=== PATIENT | female | born 1945 | race Caucasian/White ===

== ENCOUNTER 2017-01-18 11:47 | Inpatient (IN) | payer MEDICARE, BC ==
[2017-01-18] MEDS ORDERED: methylPREDNISolone Sodium Succinate 40 MG/1 ML SDV IVPUSH SCH (13:00)
[2017-01-18] MEDS ORDERED: methylPREDNISolone Sodium Succinate 125 MG/2 ML SDV IVPUSH ONE (13:02)
--- NOTE | 2017-01-18 13:39 | PCM.HP ---
H&P History of Present Illness - General Date of Service: 01/18/17 Admit Problem/Dx: Admission Diagnosis/Problem Admission Diagnosis/Problem Pneumonia Source of Information: Patient History Limitations: Reports: No limitations - History of Present Illness Onset of Symptoms: Reports: gradual Duration of Symptoms: Reports: Day(s): Location: Reports: chest Quality: Reports: Pressure, Same as previous episode Improves with: Reports: Rest Worsens with: Reports: Breathing, Other (coughing), Movement Associated Symptoms: Reports: chest pain (pleuritic), cough, cough w sputum, malaise, shortness of breath, weakness - Related Data Allergies/Adverse Reactions: Allergies Allergy/AdvReac Type Severity Reaction Status Date / Time codeine Allergy Cannot Verified 02/21/14 11:50 Remember Home Medications: Home Meds Gabapentin [Gabapentin] 02/21/14 [History] Metoprolol Succinate [Toprol XL 50mg] 02/21/14 [History] hydrALAZINE [Apresoline] 02/21/14 [History] Past Medical History HEENT History: Reports: Other (see below) Other HEENT History: h/o right tempanic membrane perforation Cardiovascular History: Reports: High cholesterol, Hypertension Musculoskeletal History: Reports: RA Neurological History: Reports: CVA, Neuropathy, peripheral, TIA Other Neuro History: 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 Psychiatric History: Reports: Anxiety, Depression - Past Surgical History HEENT Surgical History: Reports: Eye surgery Other HEENT Surgeries/Procedures: Cataract surgery Social & Family History - Tobacco Use Smoking Status *Q: Former Smoker Years of Tobacco use: 51 Second Hand Smoke Exposure: No - Alcohol Use Days Per Week of Alcohol Use: 1 Number of Drinks Per Day: 1 (1 glass wine per week with no previous DWI, etc.) Total Drinks Per Week: 1 - Recreational Drug Use Recreational Drug Use: No Recreational Drug Last Use: 12 cups of weak coffee per day - Living Situation & Occupation Living situation: Reports: (In 1981, one child) 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) H&P Review of Systems - Review of Systems: Review Of Systems: See Below General: Reports: fever, chills, malaise, weakness, fatigue HEENT: Reports: no symptoms Pulmonary: Reports: Shortness of Breath, Pleuritic Chest Pain, Cough, Sputum Cardiovascular: Reports: no symptoms Gastrointestinal: Reports: No symptoms Genitourinary: Reports: no symptoms Musculoskeletal: Reports: no symptoms Skin: Reports: no symptoms Psychiatric: Reports: no symptoms Neurological: Reports: No Symptoms Exam - Exam Exam: See Below - Exam General: alert, oriented, moderate distress HEENT: Posterior pharynx clear Neck: supple, trachea midline, 2 Lungs: Decreased breath sounds, Other (hurts to try to deep-breathe for exam) Cardiovascular: regular rate, regular rhythm Abdomen: normal bowel sounds, soft (Female) Exam: Deferred Rectal (Female) Exam: Deferred Back Exam: normal inspection Extremities: 3, normal inspection, 10 Skin: warm, dry, other (pale) Neuro Extensive - Mental Status: alert, oriented x3 Psychiatric: alert, normal affect, normal mood *Q Meaningful Use (ADM) - VTE *Q VTE Criteria *Q: - Stroke *Q Stroke Criteria *Q: - AMI *Q AMI Criteria *Q: - Problem List (1) Pneumonia SNOMED Code(s): 986124975 ICD Code: J18.9 - PNEUMONIA, UNSPECIFIED ORGANISM Status: Acute Priority : High Current Visit: Yes Qualifiers: Laterality: left Problem List Initiated/Reviewed/Updated: Yes Orders Last 24hrs: Active Orders 24 hr Category Date Time Status Patient Status [ADT] Routine ADT 01/18/17 12:46 Active Bedrest Bathroom Privileges [RC] ASDIRECTED Care 01/18/17 12:46 Active Height and Weight [RC] DAILY Care 01/18/17 12:46 Active Intake and Output [RC] QSHIFT Care 01/18/17 12:50 Active May Shower [RC] ASDIRECTED Care 01/18/17 12:46 Active Oxygen Therapy Adult [Oxygen Therapy] [RC] ASDIRECTED Care 01/18/17 12:56 Active Oxygen Therapy [RC] PRN Care 01/18/17 12:46 Active Up With Assistance [RC] ASDIRECTED Care 01/18/17 12:46 Active VTE/DVT Education [RC] PER UNIT ROUTINE Care 01/18/17 12:46 Active Vital Signs [RC] Q4H Care 01/18/17 12:46 Active Consult to Case Management [CONS] Routine Cons 01/18/17 12:46 Active Regular Diet [DIET] Diet 01/18/17 Dinner Active Chest 2V [CR] Routine Exams 01/18/17 11:45 Taken Chest 2V [CR] Routine Exams 01/20/17 07:00 Ordered C-REACTIVE PROTEIN [CHEM] AM Lab 01/19/17 05:11 Ordered C-REACTIVE PROTEIN [CHEM] AM Lab 01/20/17 05:11 Ordered C-REACTIVE PROTEIN [CHEM] AM Lab 01/21/17 05:11 Ordered C-REACTIVE PROTEIN [CHEM] AM Lab 01/22/17 05:11 Ordered CBC WITH AUTO DIFF [HEME] AM Lab 01/19/17 05:11 Ordered CBC WITH AUTO DIFF [HEME] AM Lab 01/20/17 05:11 Ordered CBC WITH AUTO DIFF [HEME] AM Lab 01/21/17 05:11 Ordered CBC WITH AUTO DIFF [HEME] AM Lab 01/22/17 05:11 Ordered COMPREHENSIVE METABOLIC PN,CMP [CHEM] AM Lab 01/19/17 05:11 Ordered COMPREHENSIVE METABOLIC PN,CMP [CHEM] AM Lab 01/20/17 05:11 Ordered COMPREHENSIVE METABOLIC PN,CMP [CHEM] AM Lab 01/21/17 05:11 Ordered COMPREHENSIVE METABOLIC PN,CMP [CHEM] AM Lab 01/22/17 05:11 Ordered CULTURE BLOOD [BC] Stat Lab 01/18/17 12:51 Ordered CULTURE BLOOD [BC] Stat Lab 01/18/17 12:51 Ordered CULTURE SPUTUM + SMEAR [RM] Stat Lab 01/18/17 12:46 Uncollected MYCOPLASMA IGM RAPID [MREF] Urgent Lab 01/18/17 12:59 Ordered Azithromycin [Zithromax] 500 mg Med 01/18/17 14:00 Active Sodium Chloride 0.9% [Normal Saline] 250 ml IV Q24H Piperacillin/Tazobactam [Zosyn] 3.375 gm Med 01/18/17 13:00 Active Sodium Chloride 0.9% [Normal Saline] 100 ml IV Q6H Sodium Chloride 0.9% [Saline Flush] Med 01/18/17 12:46 Active 10 ml FLUSH ASDIRECTED PRN methylPREDNISolone Sod Succ [Solu-MEDROL] Med 01/18/17 20:00 Active 40 mg IVPUSH Q12H Blood Culture x2 Reflex Set [OM.PC] Stat Oth 01/18/17 12:46 Ordered Saline Lock Insert [OM.PC] Routine Oth 01/18/17 12:46 Ordered Resuscitation Status Routine Resus Stat 01/18/17 12:46 Ordered Medication Orders Azithromycin 500 mg/ Sodium (Chloride) 250 mls @ 250 mls/hr IV Q24H ARASELI Piperacillin Sod/Tazobactam (Sod 3.375 gm/ Sodium Chloride) 100 mls @ 200 mls/ hr IV Q6H ARASELI Methylprednisolone Sodium Succinate (Solu-Medrol) 40 mg IVPUSH Q12H ARASELI Sodium Chloride (Saline Flush) 10 ml FLUSH ASDIRECTED PRN PRN Reason: Keep Vein Open Assessment/Plan Comment:: 01-18-17 Rekha Moy PA-C Pt. initially evaluated in [facility] for c/o left-sided chest congestion with pleuritic pain, cough, SOB and fatigue. Diagnosis of community-acquired pneumonia was made and she is admitted for IP treatment. Consulted Dr. Chavez at the time of admit. Patient is considered immunocompromised due to RA and treatment meds (Prednisone and Methotrexate). IV Zosyn and Zithromax as well as Solu-Medrol started. Duo-nebs QID plus Q4H prn. Mycosplasma screen ordered, can DC Zithromax if this returns negative. Blood cultures ordered on admit. Follow-up labs ordered, and repeat CXR in two days.
[2017-01-18] MEDS ORDERED: Azithromycin 500 MG in Sodium Chloride 0.9% 250 ML IV SCH (14:00)
[2017-01-18] MEDS: Piperacillin/Tazobactam 3.375 GM in Sodium Chloride 0.9% 100 ML IV SCH ×2 (14:32→19:36)
[2017-01-18] MEDS ORDERED: Albuterol/Ipratropium 3.0-0.5 MG/3 ML Neb Soln NEB PRN (14:54)
[2017-01-18] MEDS: Albuterol/Ipratropium 3.0-0.5 MG/3 ML Neb Soln NEB SCH ×2 (16:35→19:36)
[2017-01-18] MEDS: methylPREDNISolone Sodium Succinate 40 MG/1 ML SDV IVPUSH SCH (19:36)
[2017-01-18] MEDS: Sodium Chloride 0.9% 10 ML Syringe FLUSH PRN ×2 (19:37→19:38)
[2017-01-18] MEDS: Famotidine 20 MG Tab PO SCH (20:54)
[2017-01-19] MEDS: Sodium Chloride 0.9% 10 ML Syringe FLUSH PRN (01:09)
[2017-01-19] MEDS: Piperacillin/Tazobactam 3.375 GM in Sodium Chloride 0.9% 100 ML IV SCH ×4 (01:09→19:11)
[2017-01-19] MEDS: Clopidogrel 75 MG Tab PO SCH (08:34)
[2017-01-19] MEDS: Gabapentin 100 MG Cap PO SCH ×3 (08:34→17:34)
[2017-01-19] MEDS: Famotidine 20 MG Tab PO SCH ×2 (08:35→19:11)
[2017-01-19] MEDS: methylPREDNISolone Sodium Succinate 40 MG/1 ML SDV IVPUSH SCH (08:36)
[2017-01-19] MEDS: Albuterol/Ipratropium 3.0-0.5 MG/3 ML Neb Soln NEB SCH ×4 (08:36→19:11)
--- NOTE | 2017-01-19 12:22 | PCM.SN ---
- Free Text/Narrative Note: 01-19-17 Rekha Moy PA-C Mycoplasma negative, Zithromax [place].
[2017-01-19] MEDS: Sodium Chloride 0.9% 10 ML Syringe FLUSH SCH (19:12)
--- NOTE | 2017-01-19 22:51 | PCM.PN ---
- General Info Date of Service: 01/19/17 Functional Status: Reports: other (pain improving) - Review of Systems General: Reports: Weakness, Other (flushed with solumedrol) HEENT: Reports: no symptoms Pulmonary: Reports: shortness of breath, pleuritic chest pain, cough, sputum Cardiovascular: Reports: No Symptoms Gastrointestinal: Reports: Decreased appetite Genitourinary: Reports: no symptoms Musculoskeletal: Reports: no symptoms Skin: Reports: no symptoms Neurological: Reports: No Symptoms Psychiatric: Reports: no symptoms - Patient Data Vitals - most recent: Last Vital Signs Temp 97.8 F 01/19/17 19:18 Pulse 101 H 01/19/17 19:18 Resp 16 01/19/17 19:18 BP 151/72 H 01/19/17 19:18 Pulse Ox 96 01/19/17 19:18 Weight - most recent: 176 lb 6.4 oz I&O - last 24 hours: Intake & Output 01/19/17 01/19/17 01/19/17 06:59 14:59 22:59 Intake Total 150 640 200 Output Total 400 Balance -250 640 200 Lab Results last 24 hrs: Laboratory Results - last 24 hr 01/19/17 01/19/17 Range/Units 06:53 06:53 WBC 7.8 (4.0-10.2) K/uL RBC 3.60 L (3.77-5.09) M/uL Hgb 11.4 L D (11.7-15.5) g/dL Hct 35.3 (34.0-46.0) % MCV 98.1 H (84.0-98.0) fL MCH 31.7 (28.2-33.3) pg MCHC 32.3 (31.7-36.0) g/dL RDW 14.6 H (11.2-14.1) % Plt Count 203 (150-350) K/uL Neut % (Auto) 87.8 H (45.0-80.0) % Lymph % (Auto) 8.1 L (10.0-50.0) % [place] % (Auto) 2.7 (2.0-14.0) % Eos % (Auto) 0.0 (0.0-5.0) % Baso % (Auto) 1.4 (0.0-2.0) % Neut # (Auto) 6.84 (1.40-7.00) K/uL Lymph # (Auto) 0.63 (0.50-3.50) K/uL [place] # (Auto) 0.21 (0.00-1.00) K/uL Eos # (Auto) 0.00 (0.00-0.50) K/uL Baso # (Auto) 0.11 (0.00-0.20) K/uL Sodium 140 (136-145) mmol/L Potassium 4.4 (3.5-5.1) mmol/L Chloride 104 (98-107) mmol/L Carbon Dioxide 25.3 (21.0-32.0) mmol/L BUN 18 (7-18) mg/dL Creatinine 1.00 (0.51-1.17) mg/dL Est Cr Clr Drug Dosing 53.73 mL/min Estimated GFR (MDRD) 55 mL/min Glucose 184 H (74-106) mg/dL Calcium 8.4 L (8.5-10.1) mg/dL Total Bilirubin 0.4 (0.2-1.0) mg/dL AST 18 (15-37) U/L ALT 21 (12-78) U/L Alkaline Phosphatase 60 (46-116) IU/L C-Reactive Protein 10.1 H (<=0.9) mg/dL Total Protein 6.4 (6.4-8.2) g/dL Albumin 2.8 L (3.4-5.0) g/dL Dc Results last 24 hrs: Microbiology 01/18/17 13:00 Mycoplasma Serology - Final Blood Med Orders - Current: Current Medications Albuterol/Ipratropium (Duoneb 3.0-0.5 Mg/3 Ml) 3 ml NEB QIDRT [facility] Last Admin: 01/19/17 19:11 Dose: 3 ml Albuterol/Ipratropium (Duoneb 3.0-0.5 Mg/3 Ml) 3 ml NEB Q4HRRT PRN PRN Reason: Dyspnea Clopidogrel Bisulfate (Plavix) 75 mg PO DAILY [facility] Last Admin: 01/19/17 08:34 Dose: 75 mg Famotidine (Pepcid) 40 mg PO Q12HR [facility] Last Admin: 01/19/17 19:11 Dose: 40 mg Gabapentin (Neurontin) 100 mg PO TID [facility] Last Admin: 01/19/17 17:34 Dose: 100 mg Piperacillin Sod/Tazobactam (Sod 3.375 gm/ Sodium Chloride) 100 mls @ 200 mls/ hr IV Q6H [facility] Last Admin: 01/19/17 19:11 Dose: 200 mls/hr Prednisone (Prednisone) 10 mg PO WITHBREAKFAST [facility] Sodium Chloride (Saline Flush) 10 ml FLUSH ASDIRECTED PRN PRN Reason: Keep Vein Open Last Admin: 01/19/17 01:09 Dose: 10 ml Sodium Chloride (Saline Flush) 10 ml FLUSH Q12HR [facility] Last Admin: 01/19/17 19:12 Dose: 10 ml Discontinued Medications Azithromycin 500 mg/ Sodium (Chloride) 250 mls @ 250 mls/hr IV Q24H [facility] Last Admin: 01/18/17 15:20 Dose: 250 mls/hr Methylprednisolone Sodium Succinate (Solu-Medrol) 40 mg IVPUSH Q12H [facility] Last Admin: 01/18/17 16:23 Dose: Not Given Methylprednisolone Sodium Succinate (Solu-Medrol) 40 mg IVPUSH ONETIME ONE Stop: 01/18/17 13:03 Last Admin: 01/18/17 14:24 Dose: 40 mg Methylprednisolone Sodium Succinate (Solu-Medrol) 40 mg IVPUSH Q12H [facility] Last Admin: 01/19/17 08:36 Dose: 40 mg - Exam Quality Assessment: supplemental oxygen General: alert, cooperative, mild distress HEENT: Mucous membr. moist/pink Neck: trachea midline, no JVD Lungs: Normal respiratory effort, Decreased breath sounds (left base), Crackles , Rhonchi, Rub (left base) Cardiovascular: Regular Rate, Regular Rhythm Abdomen: bowel sounds present, soft, no tenderness, no distension (Female) Exam: Deferred Back Exam: normal inspection Extremities: no edema, no calf tenderness Skin: warm, dry, intact Neurological: no new focal deficit Psy/Mental Status: alert, normal affect, normal mood - Problem List Review Problem List Initiated/Reviewed/Updated: Yes - My Orders Last 24 Hours: My Active Orders 01/19/17 20:00 Sodium Chloride 0.9% [Saline Flush] 10 ml FLUSH Q12HR 01/20/17 08:00 predniSONE 10 mg PO WITHBREAKFAST - Plan Plan:: 01-18-17 Rekha Moy PA-C Pt. initially evaluated in [facility] [place] [place] for c/o left-sided chest congestion with pleuritic pain, cough, SOB and fatigue. Diagnosis of community-acquired pneumonia was made and she is admitted for IP treatment. Consulted Dr. Chavez at the time of admit. Patient is considered immunocompromised due to RA and treatment meds (Prednisone and Methotrexate). IV Zosyn and Zithromax as well as Solu-Medrol started. Duo-nebs QID plus Q4H prn. Mycosplasma screen ordered, can DC Zithromax if this returns negative. Blood cultures ordered on admit. Follow-up labs ordered, and repeat CXR in two days. 01/19/17 Scott Thomas MD Feels a little bit better today but still short of breath and pleuritic chest pain is improved. Productive cough last night. Solumedrol causing her to flush, head pounding, she says solumedrol at higher doses has done this in the past. She is on chronic Prednisone so will change to prednisone at 10mg daily which is slight increase of her maintenance dose of 5mg daily. Continue IV zosyn and change to prednisone. Continue respiratory treatments.
[2017-01-20] MEDS: Piperacillin/Tazobactam 3.375 GM in Sodium Chloride 0.9% 100 ML IV SCH ×4 (01:50→18:16)
[2017-01-20] MEDS: Sodium Chloride 0.9% 10 ML Syringe FLUSH PRN ×3 (01:51→18:16)
[2017-01-20] MEDS: Albuterol/Ipratropium 3.0-0.5 MG/3 ML Neb Soln NEB SCH ×4 (07:23→20:27)
[2017-01-20] MEDS: Clopidogrel 75 MG Tab PO SCH (07:23)
[2017-01-20] MEDS: predniSONE 5 MG Tab PO SCH (07:23)
[2017-01-20] MEDS: Famotidine 20 MG Tab PO SCH ×2 (07:23→20:27)
[2017-01-20] MEDS: Gabapentin 100 MG Cap PO SCH ×3 (07:23→18:16)
[2017-01-20] MEDS: Sodium Chloride 0.9% 10 ML Syringe FLUSH SCH ×2 (07:24→20:28)
--- NOTE | 2017-01-20 15:53 | PCM.PN ---
- General Info Date of Service: 01/20/17 Admission Dx/Problem (Free Text): Admission Diagnosis/Problem Admission Diagnosis/Problem Pneumonia Subjective Update: Patient reports subjective improvement with cough and shortness of breath and cough has improved. She reports she feels intermittently lightheaded when she is up and ambulating. Tolerating oral liquids and diet. No other complaints. - Review of Systems General: Reports: Other (Lightheadedness when ambulating.) HEENT: Reports: no symptoms Pulmonary: Reports: cough (Improved) Cardiovascular: Reports: No Symptoms Gastrointestinal: Reports: No symptoms Genitourinary: Reports: no symptoms Musculoskeletal: Reports: no symptoms Skin: Reports: no symptoms Neurological: Reports: No Symptoms Psychiatric: Reports: no symptoms - Patient Data Vitals - most recent: Last Vital Signs Temp 35.5 C 01/20/17 11:50 Pulse 85 01/20/17 11:50 Resp 18 01/20/17 08:00 BP 118/52 L 01/20/17 11:50 Pulse Ox 94 L 01/20/17 11:50 Weight - most recent: 81.692 kg I&O - last 24 hours: Intake & Output 01/20/17 01/20/17 01/20/17 06:59 14:59 22:59 Intake Total 760 Balance 760 Lab Results last 24 hrs: Laboratory Results - last 24 hr 01/20/17 01/20/17 Range/Units 06:40 06:40 WBC 10.0 (4.0-10.2) K/uL RBC 3.77 (3.77-5.09) M/uL Hgb 11.9 (11.7-15.5) g/dL Hct 37.3 (34.0-46.0) % MCV 98.9 H (84.0-98.0) fL MCH 31.6 (28.2-33.3) pg MCHC 31.9 (31.7-36.0) g/dL RDW 14.8 H (11.2-14.1) % Plt Count 235 (150-350) K/uL Neut % (Auto) 83.7 H (45.0-80.0) % Lymph % (Auto) 12.7 (10.0-50.0) % [place] % (Auto) 2.3 (2.0-14.0) % Eos % (Auto) 0.1 (0.0-5.0) % Baso % (Auto) 1.2 (0.0-2.0) % Neut # (Auto) 8.40 H (1.40-7.00) K/uL Lymph # (Auto) 1.27 (0.50-3.50) K/uL [place] # (Auto) 0.23 (0.00-1.00) K/uL Eos # (Auto) 0.01 (0.00-0.50) K/uL Baso # (Auto) 0.12 (0.00-0.20) K/uL Sodium 145 (136-145) mmol/L Potassium 4.3 (3.5-5.1) mmol/L Chloride 107 (98-107) mmol/L Carbon Dioxide 27.8 (21.0-32.0) mmol/L BUN 19 H (7-18) mg/dL Creatinine 0.99 (0.51-1.17) mg/dL Est Cr Clr Drug Dosing 54.28 mL/min Estimated GFR (MDRD) 55 mL/min Glucose 157 H (74-106) mg/dL Calcium 8.9 (8.5-10.1) mg/dL Total Bilirubin 0.3 (0.2-1.0) mg/dL AST 23 (15-37) U/L ALT 28 (12-78) U/L Alkaline Phosphatase 63 (46-116) IU/L C-Reactive Protein 5.1 H (<=0.9) mg/dL Total Protein 6.8 (6.4-8.2) g/dL Albumin 3.0 L (3.4-5.0) g/dL Dc Results last 24 hrs: Microbiology 01/18/17 13:25 Aerobic Blood Culture - Preliminary Blood - Venous - Lab Draw NO GROWTH AFTER 2 DAYS Anaerobic Blood Culture - Preliminary NO GROWTH AFTER 2 DAYS 01/18/17 13:00 Aerobic Blood Culture - Preliminary Blood - Venous NO GROWTH AFTER 2 DAYS Anaerobic Blood Culture - Preliminary NO GROWTH AFTER 2 DAYS Med Orders - Current: Current Medications Albuterol/Ipratropium (Duoneb 3.0-0.5 Mg/3 Ml) 3 ml NEB QIDRT [facility] Last Admin: 01/20/17 11:20 Dose: 3 ml Albuterol/Ipratropium (Duoneb 3.0-0.5 Mg/3 Ml) 3 ml NEB Q4HRRT PRN PRN Reason: Dyspnea Clopidogrel Bisulfate (Plavix) 75 mg PO DAILY [facility] Last Admin: 01/20/17 07:23 Dose: 75 mg Famotidine (Pepcid) 40 mg PO Q12HR [facility] Last Admin: 01/20/17 07:23 Dose: 40 mg Gabapentin (Neurontin) 100 mg PO TID [facility] Last Admin: 01/20/17 11:20 Dose: 100 mg Piperacillin Sod/Tazobactam (Sod 3.375 gm/ Sodium Chloride) 100 mls @ 200 mls/ hr IV Q6H [facility] Last Admin: 01/20/17 13:17 Dose: 200 mls/hr Prednisone (Prednisone) 10 mg PO WITHBREAKFAST [facility] Last Admin: 01/20/17 07:23 Dose: 10 mg Sodium Chloride (Saline Flush) 10 ml FLUSH ASDIRECTED PRN PRN Reason: Keep Vein Open Last Admin: 01/20/17 13:17 Dose: 10 ml Sodium Chloride (Saline Flush) 10 ml FLUSH Q12HR [facility] Last Admin: 01/20/17 07:24 Dose: 10 ml Discontinued Medications Azithromycin 500 mg/ Sodium (Chloride) 250 mls @ 250 mls/hr IV Q24H [facility] Last Admin: 01/18/17 15:20 Dose: 250 mls/hr Methylprednisolone Sodium Succinate (Solu-Medrol) 40 mg IVPUSH Q12H [facility] Last Admin: 01/18/17 16:23 Dose: Not Given Methylprednisolone Sodium Succinate (Solu-Medrol) 40 mg IVPUSH ONETIME ONE Stop: 01/18/17 13:03 Last Admin: 01/18/17 14:24 Dose: 40 mg Methylprednisolone Sodium Succinate (Solu-Medrol) 40 mg IVPUSH Q12H [facility] Last Admin: 01/19/17 08:36 Dose: 40 mg - Exam General: alert, oriented HEENT: Pupils equal, Pupils reactive, EOMI, Mucous membr. moist/pink Lungs: Clear to auscultation, Normal respiratory effort Cardiovascular: Regular Rate, Regular Rhythm, No Murmurs, Gallops, Rubs Abdomen: bowel sounds present, soft, no tenderness, no distension. No: rebound , guarding Extremities: no edema, normal pulses, no tenderness/swelling Skin: warm, dry, intact Neurological: no new focal deficit Psy/Mental Status: alert, normal affect, normal mood - Problem List & Annotations (1) Pneumonia SNOMED Code(s): 519962738 Code(s): J18.9 - PNEUMONIA, UNSPECIFIED ORGANISM Status: Acute Priority: High Current Visit: Yes Qualifiers: Laterality: left Annotation/Comment:: Improved significantly since admission on current regimen. (2) HTN, Benign hypertension SNOMED Code(s): 51747134 Code(s): I10 - ESSENTIAL (PRIMARY) HYPERTENSION Status: Chronic Priority : Low Current Visit: No Annotation/Comment:: Controlled on current regimen. (3) Rheumatoid arthritis SNOMED Code(s): 24145537 Code(s): M06.9 - RHEUMATOID ARTHRITIS, UNSPECIFIED Status: Chronic Priority: Low Current Visit: No Annotation/Comment:: Treated with methotrexate and Prednisone. - Problem List Review Problem List Initiated/Reviewed/Updated: Yes - My Orders Last 24 Hours: My Active Orders 01/20/17 14:42 PT Evaluation and Treatment [CONS] Routine 01/20/17 14:44 OT Evaluation and Treatment [CONS] Routine - Plan Plan:: 1. Continue IV Zosyn. 2. Continue Prednisone as patient did not tolerate Solumedrol. 3. Nebulizers as scheduled. 4. Nursing to ambulate TID in hallway. 5. Discharge planning, likely tomorrow. 6. EMILIE hose and Lovenox for DVT prophylaxis. 7. Incentive spirometer for pneumonia prophylaxis.
[2017-01-21] MEDS: guaiFENesin/Dextromethorphan 100-10 MG/5 ML Soln 10 ML Cup PO PRN ×2 (01:04→07:14)
[2017-01-21] MEDS: Sodium Chloride 0.9% 10 ML Syringe FLUSH PRN ×2 (01:05→12:46)
[2017-01-21] MEDS: Piperacillin/Tazobactam 3.375 GM in Sodium Chloride 0.9% 100 ML IV SCH ×2 (01:05→07:04)
[2017-01-21] MEDS: Gabapentin 100 MG Cap PO SCH ×2 (07:04→12:46)
[2017-01-21] MEDS: Clopidogrel 75 MG Tab PO SCH (07:04)
[2017-01-21] MEDS: Famotidine 20 MG Tab PO SCH (07:04)
[2017-01-21] MEDS: Albuterol/Ipratropium 3.0-0.5 MG/3 ML Neb Soln NEB SCH ×3 (07:04→15:36)
[2017-01-21] MEDS: predniSONE 5 MG Tab PO SCH (07:04)
[2017-01-21] MEDS: Sodium Chloride 0.9% 10 ML Syringe FLUSH SCH (07:05)
[2017-01-21] MEDS ORDERED: Levofloxacin/Dextrose 5%-Water 750 MG in Premix Bag 1 BAG IV ONE (12:26)
[2017-01-21] MEDS ORDERED: guaiFENesin/Dextromethorphan 100-10 MG/5 ML Soln 10 ML Cup PO PRN (13:00)
[2017-01-21 16:17] VITALS: BP 143/62
--- NOTE | 2017-01-21 16:27 | PCM.DCSUM1 ---
Discharge Summary - Hospital Course Free Text/Narrative:: Admitted on 01/18/17 for left sided community acquired pneumonia. Started on Zosyn and Azithromycin. Also started nebulizers and attempted IV Solumedrol which patient did not tolerate and was warm and flushed. Cultures negative and Azithromycin discontinued. Had slow and steady improvement since admission. Zosyn discontinued and given IV Levaquin 750 mg on 01/21/17 as plan to discharge home on PO Levaquin and patient tolerated well. Patient ambulated without assistance and reports weakness and lightheadedness improved and is stable and steady while ambulating. Eating and drinking well. Having normal bowel and bladder function. Ready for discharge today. Will discharge home on PO Levaquin 750 mg PO every 48 hours given creatinine clearance. Given prescription for albuterol nebulizers to use every 4 hours as needed at home. Instructed to take 5-10 mL (1-2 teaspoons) of Robitussin DM as needed for cough and congestion. Will followup with PCP in 1 week. - Discharge Data Discharge Date: 01/21/17 Discharge Disposition: Home, Self-Care 01 Condition: Good - Discharge Diagnosis/Problem(s) (1) Pneumonia SNOMED Code(s): 426292813 ICD Code: J18.9 - PNEUMONIA, UNSPECIFIED ORGANISM Status: Acute Priority : High Current Visit: Yes Problem Details: Improved on current treatment regimen. Will discharge on oral Levaquin. Qualifiers: Laterality: left (2) HTN, Benign hypertension SNOMED Code(s): 42891673 ICD Code: I10 - ESSENTIAL (PRIMARY) HYPERTENSION Status: Chronic Priority : Low Current Visit: No Problem Details: Controlled on current regimen. (3) Rheumatoid arthritis SNOMED Code(s): 71894040 ICD Code: M06.9 - RHEUMATOID ARTHRITIS, UNSPECIFIED Status: Chronic Priority: Low Current Visit: No Problem Details: Treated with methotrexate and Prednisone. - Patient Summary/Data Consults: Consultations 01/18/17 12:46 Consult to Case Management [CONS] Routine 01/20/17 14:42 PT Evaluation and Treatment [CONS] Routine 01/20/17 14:44 OT Evaluation and Treatment [CONS] Routine - Patient Instructions Diet: Usual Diet as Tolerated Activity: As Tolerated, Cough & Deep Breathe Driving: Do Not Drive Showering/Bathing: May Shower Notify Provider of: Fever Other/Special Instructions: Followup with PCP in 1 week s/p hospitalization for community acquired pneumonia. - Discharge Plan Prescriptions/Med Rec: Albuterol [Proventil Neb Soln] 2.5 mg NEB Q4HRRT PRN #10 neb PRN Reason: Wheezing Levofloxacin 750 mg PO Q48H #3 tablet Home Medications: Home Meds Gabapentin [Gabapentin] 100 mg PO TID 02/21/14 [History] Calcium Carbonate/Vitamin D3 [Caltrate-600 with Vit D Tab] 1 each PO DAILY 01/18 [History] Clopidogrel [Plavix] 75 mg PO DAILY 01/18/17 [History] Folic Acid [Folic Acid] 1 mg PO DAILY 01/18/17 [History] Methotrexate [Methotrexate] 25 injection IM WEEKLY 01/18/17 [History] Non-Formulary Medication [NF Drug] 1 applic TP BID PRN 01/18/17 [History] Ranitidine HCl 150 mg PO Q12HR 01/18/17 [History] atorvaSTATin [Lipitor] 10 mg PO BEDTIME 01/18/17 [History] predniSONE [Prednisone] 5 mg PO DAILY 01/18/17 [History] Albuterol [Proventil Neb Soln] 2.5 mg NEB Q4HRRT PRN #10 neb 01/21/17 [Rx] Levofloxacin 750 mg PO Q48H #3 tablet 01/21/17 [Rx] Patient Handouts: Community-Acquired Pneumonia, Adult Referrals: Lilia Moy PA [Primary Care Provider] - - Discharge Summary/Plan Comment DC Time >30 min.: No - General Info Date of Service: 01/21/17 Admission Dx/Problem (Free Text: Admission Diagnosis/Problem Admission Diagnosis/Problem Pneumonia Functional Status: Reports: tolerating diet, ambulating, urinating - Review of Systems General: Reports: No Symptoms HEENT: Reports: no symptoms Pulmonary: Reports: cough (Improved with Robitussin DM), sputum. Denies: shortness of breath, pleuritic chest pain, hemoptysis, wheezing Cardiovascular: Reports: No Symptoms Gastrointestinal: Reports: No symptoms Genitourinary: Reports: no symptoms Musculoskeletal: Reports: no symptoms Skin: Reports: no symptoms Neurological: Reports: No Symptoms Psychiatric: Reports: no symptoms - Patient Data Vitals - Most Recent: Last Vital Signs Temp 36.7 C 01/21/17 16:00 Pulse 101 H 01/21/17 16:00 Resp 16 01/21/17 16:00 BP 143/62 H 01/21/17 16:00 Pulse Ox 95 01/21/17 16:00 Weight - Most Recent: 81.448 kg I&O - Last 24 hours: Intake & Output 01/21/17 01/21/17 01/21/17 06:59 14:59 22:59 Intake Total 560 Balance 560 Lab Results - Last 24 hrs: Laboratory Results - last 24 hr 01/21/17 01/21/17 Range/Units 06:30 06:30 WBC 7.1 (4.0-10.2) K/uL RBC 3.42 L (3.77-5.09) M/uL Hgb 10.7 L (11.7-15.5) g/dL Hct 34.4 (34.0-46.0) % MCV 100.6 H (84.0-98.0) fL MCH 31.3 (28.2-33.3) pg MCHC 31.1 L (31.7-36.0) g/dL RDW 14.9 H (11.2-14.1) % Plt Count 215 (150-350) K/uL Neut % (Auto) 59.5 (45.0-80.0) % Lymph % (Auto) 33.3 (10.0-50.0) % Gooding % (Auto) 4.2 (2.0-14.0) % Eos % (Auto) 2.0 (0.0-5.0) % Baso % (Auto) 1.0 (0.0-2.0) % Neut # (Auto) 4.24 (1.40-7.00) K/uL Lymph # (Auto) 2.37 (0.50-3.50) K/uL Gooding # (Auto) 0.30 (0.00-1.00) K/uL Eos # (Auto) 0.14 (0.00-0.50) K/uL Baso # (Auto) 0.07 (0.00-0.20) K/uL Sodium 147 H (136-145) mmol/L Potassium 4.0 (3.5-5.1) mmol/L Chloride 110 H (98-107) mmol/L Carbon Dioxide 29.2 (21.0-32.0) mmol/L BUN 18 (7-18) mg/dL Creatinine 1.18 H (0.51-1.17) mg/dL Est Cr Clr Drug Dosing 45.54 mL/min Estimated GFR (MDRD) 45 mL/min Glucose 100 (74-106) mg/dL Calcium 8.2 L (8.5-10.1) mg/dL Total Bilirubin 0.4 (0.2-1.0) mg/dL AST 17 (15-37) U/L ALT 23 (12-78) U/L Alkaline Phosphatase 53 (46-116) IU/L C-Reactive Protein 2.5 H (<=0.9) mg/dL Total Protein 5.7 L (6.4-8.2) g/dL Albumin 2.6 L (3.4-5.0) g/dL DENNIS Results - Last 24 hrs: Microbiology 01/18/17 13:25 Aerobic Blood Culture - Preliminary Blood - Venous - Lab Draw NO GROWTH AFTER 3 DAYS Anaerobic Blood Culture - Preliminary NO GROWTH AFTER 3 DAYS 01/18/17 13:00 Aerobic Blood Culture - Preliminary Blood - Venous NO GROWTH AFTER 3 DAYS Anaerobic Blood Culture - Preliminary NO GROWTH AFTER 3 DAYS Med Orders - Current: Current Medications Albuterol/Ipratropium (Duoneb 3.0-0.5 Mg/3 Ml) 3 ml NEB QIDRT [facility] Last Admin: 01/21/17 15:36 Dose: 3 ml Albuterol/Ipratropium (Duoneb 3.0-0.5 Mg/3 Ml) 3 ml NEB Q4HRRT PRN PRN Reason: Dyspnea Clopidogrel Bisulfate (Plavix) 75 mg PO DAILY [facility] Last Admin: 01/21/17 07:04 Dose: 75 mg Famotidine (Pepcid) 40 mg PO Q12HR [facility] Last Admin: 01/21/17 07:04 Dose: 40 mg Gabapentin (Neurontin) 100 mg PO TID [facility] Last Admin: 01/21/17 12:46 Dose: 100 mg Guaifenesin/Dextromethorphan (Robitussin Dm) 10 ml PO Q6H PRN PRN Reason: Cough Last Admin: 01/21/17 07:14 Dose: 10 ml Guaifenesin/Dextromethorphan (Robitussin Dm) 10 ml PO Q4H PRN PRN Reason: Cough Last Admin: 01/21/17 15:39 Dose: 10 ml Prednisone (Prednisone) 10 mg PO WITHBREAKFAST [facility] Last Admin: 01/21/17 07:04 Dose: 10 mg Sodium Chloride (Saline Flush) 10 ml FLUSH ASDIRECTED PRN PRN Reason: Keep Vein Open Last Admin: 01/21/17 12:46 Dose: 10 ml Sodium Chloride (Saline Flush) 10 ml FLUSH Q12HR [facility] Last Admin: 01/21/17 07:05 Dose: 10 ml Discontinued Medications Azithromycin 500 mg/ Sodium (Chloride) 250 mls @ 250 mls/hr IV Q24H [facility] Last Admin: 01/18/17 15:20 Dose: 250 mls/hr Piperacillin Sod/Tazobactam (Sod 3.375 gm/ Sodium Chloride) 100 mls @ 200 mls/ hr IV Q6H [facility] Last Admin: 01/21/17 07:04 Dose: 200 mls/hr Levofloxacin/Dextrose 750 mg/ (Premix) 150 mls @ 100 mls/hr IV ONETIME ONE Stop: 01/21/17 13:55 Last Admin: 01/21/17 12:46 Dose: 100 mls/hr Methylprednisolone Sodium Succinate (Solu-Medrol) 40 mg IVPUSH Q12H [facility] Last Admin: 01/18/17 16:23 Dose: Not Given Methylprednisolone Sodium Succinate (Solu-Medrol) 40 mg IVPUSH ONETIME ONE Stop: 01/18/17 13:03 Last Admin: 01/18/17 14:24 Dose: 40 mg Methylprednisolone Sodium Succinate (Solu-Medrol) 40 mg IVPUSH Q12H [facility] Last Admin: 01/19/17 08:36 Dose: 40 mg - Exam General: Reports: alert, oriented HEENT: Reports: Pupils equal, Pupils reactive, EOMI, Mucous membr. moist/pink Lungs: Reports: Clear to auscultation, Normal respiratory effort. Denies: Crackles, Rales, Rhonchi, Rub, Stridor, Wheezing Cardiovascular: Reports: Regular Rate, Regular Rhythm, No Murmurs. Denies: Gallops, Rubs Abdomen: Reports: bowel sounds present, soft, no tenderness, no distension. Denies: rigidity, rebound, guarding Extremities: Reports: no edema, no tenderness/swelling, no clubbing, no cyanosis Skin: Reports: warm, dry, intact Wound/Incisions: Reports: healing well Neurological: Reports: no new focal deficit Psy/Mental Status: Reports: alert, normal affect, normal mood *Q Meaningful Use (DIS) - VTE *Q VTE Criteria *Q: - Stroke *Q Stroke Criteria *Q: - AMI *Q AMI Criteria *Q:
== END 2017-01-21 17:50 | disposition home or self-care (01) | DRG 195 ==
LOC: LL.DI 11:47 → LL.MS 12:30
PROVIDERS: ADMIT Physician Assistant; ATTEND Family Medicine
DX: J18.9 Pneumonia, unspecified organism (principal); I10 Essential (primary) hypertension; M06.9 Rheumatoid arthritis, unspecified; F41.8 Other specified anxiety disorders; E78.5 Hyperlipidemia, unspecified; Z86.73 Personal history of transient ischemic attack (TIA), and cerebral infarction without residual deficits; Z79.899 Other long term (current) drug therapy; Z79.52 Long term (current) use of systemic steroids
CPT/HCPCS: 36415; 71020; 80053; 85025; 86140; 86738; 87040; 94640; 94664; 97110-GP; 97116-GP; 97161-GP; A9270-GY; J0456; J1956; J2543; J2920; J2930; J7050

== ENCOUNTER 2021-03-13 07:55 | Day surgery (SDC) | payer MEDICARE, BC ==
[~2021-03-13 07:55] MED LIST: Ketamine 500 mg/10 ML MDV ONE; Lactated Ringers 1,000 ML IV SCH; Midazolam 1 MG/ML 2 ML SDV ONE; Propofol 200 MG/20 ML SDV ONE; Sodium Chloride 0.9% 10 ML Syringe FLUSH PRN; fentaNYL 100 MCG/2 ML SDV ONE
[2021-03-13] MEDS ORDERED: Midazolam 1 MG/ML 2 ML SDV ONE (08:56)
[2021-03-13] MEDS ORDERED: Lidocaine 0.5% 50 ML SDV ONE (08:56)
[2021-03-13] MEDS ORDERED: hydrALAZINE 20 MG/ML SDV ONE (08:56)
[2021-03-13] MEDS ORDERED: Ketamine 500 mg/10 ML MDV ONE (08:56)
[2021-03-13] MEDS ORDERED: Propofol 200 MG/20 ML SDV ONE (08:56)
[2021-03-13] MEDS ORDERED: fentaNYL 100 MCG/2 ML SDV ONE (08:56)
--- NOTE | 2021-03-13 09:07 | PCM.PN ---
- General Info Date of Service: 03/13/21 - Review of Systems Systems Review Comment:: 75-year-old female with left carpal tunnel syndrome here for left carpal tunnel release. She is medically stable to proceed today. Her recent history and physical is reviewed and no significant changes are noted. The site for surgery is confirmed with the patient and marked. The proposed procedure is again discussed with her. Instructions and expectations are reviewed. Questions were answered. She agrees to proceed. - Patient Data Vitals - Most Recent: Last Vital Signs Temp 98.3 F 03/13/21 08:52 Pulse 84 03/13/21 08:52 Resp 18 03/13/21 08:52 BP 145/57 H 03/13/21 08:52 Pulse Ox 99 03/13/21 08:52 Weight - Most Recent: 78.925 kg Med Orders - Current: Current Medications Lactated Ringer's (Ringers, Lactated) 1,000 mls @ 125 mls/hr IV ASDIRECTED ARASELI Last Admin: 03/13/21 08:49 Dose: 125 mls/hr Documented by: Sodium Chloride (Sodium Chloride 0.9% 10 Ml Syringe) 10 ml FLUSH ASDIRECTED PRN PRN Reason: Keep Vein Open Discontinued Medications Fentanyl (Fentanyl 100 Mcg/2 Ml Sdv) Confirm Administered Dose 100 mcg .ROUTE .STK-MED ONE Stop: 03/13/21 07:43 Ketamine HCl (Ketamine 500 Mg/10 Ml Mdv) Confirm Administered Dose 500 mg .ROUTE .STK-MED ONE Stop: 03/13/21 07:44 Midazolam HCl (Midazolam 1 Mg/Ml 2 Ml Sdv) Confirm Administered Dose 2 mg .ROUTE .STK-MED ONE Stop: 03/13/21 07:44 Propofol (Propofol 200 Mg/20 Ml Sdv) Confirm Administered Dose 400 mg .ROUTE .STK-MED ONE Stop: 03/13/21 07:44 Sepsis Event Note - Focused Exam Vital Signs: Vital Signs Temp Pulse Resp BP Pulse Ox 03/13/21 08:52 98.3 F 84 18 145/57 H 99 - Problem List Review Problem List Initiated/Reviewed/Updated: Yes - Assessment Assessment:: Left carpal tunnel syndrome - Plan Plan:: Left carpal tunnel release
[2021-03-13] MEDS ORDERED: Bupivacaine 0.25%/EPINEPHrine 1:200,000 30 ML SDV INFILT ONE (09:25)
--- NOTE | 2021-03-13 09:45 | PCM.OPNOTE ---
- General Post-Op/Procedure Note Date of Surgery/Procedure: 03/13/21 Operative Procedure(s): Left Carpal Tunnel Release Findings: Thickened Left Carpal Tunnel Ligament with slight nerve atrophy Pre Op Diagnosis: Left Carpal Tunnel Syndrome Post-Op Diagnosis: Same Anesthesia Technique: Regional Block Primary Surgeon: Souleymane Plaza Pathology: none EBL in mLs: 5 Complications: None Condition: Good
--- NOTE | 2021-03-13 11:16 | OR ---
Date of Procedure: 03/13/2021 PREOPERATIVE DIAGNOSIS: Left carpal tunnel syndrome. POSTOPERATIVE DIAGNOSIS: Left carpal tunnel syndrome. OPERATION PERFORMED: Left carpal tunnel release. INDICATIONS FOR SURGERY: This 75-year-old female has developed numbness and tingling in the fingers of her left hand. Workup has identified that she has left carpal tunnel syndrome, and as her symptoms are worsening, she comes for carpal tunnel release. FINDINGS: The patient's left transverse carpal ligament is thickened causing pressure on the underlying median nerve. The nerve does show some mild atrophy from this compression, but otherwise the structures appear normal. DESCRIPTION OF PROCEDURE: The patient was taken to the operating room. She was given IV regional anesthesia in the left hand which was sterilely prepped and draped. A longitudinally-oriented curvilinear incision was made along the palmar surface of the left wrist. Dissection proceeded down onto the left transverse carpal ligament, which was incised over and parallel to the course of the underlying median nerve. The ligament was completely divided as are any potentially constricting fibrous bands proximally and distally. Great care was used to avoid any injury to the underlying nerve or its branches. After the nerve had been completely released at this level and with no sign of any complication, the wound was irrigated with saline and then closed by approximating the skin edges with interrupted 4-0 Prolene in a mattress technique. The wound was infiltrated with Marcaine. Antibiotic ointment and sterile bulky dressing were placed; this was held in position with an Rad bandage. The tourniquet was released, and the patient was taken from the operating room in satisfactory condition. ESTIMATED BLOOD LOSS: 5 mL. COMPLICATIONS: None. PROGNOSIS: Good. DIONNA Plaza MD /[id number]
[2021-03-13 11:42] VITALS: BP 126/62; PULSE 83
== END 2021-03-13 11:14 | disposition home or self-care (01) ==
LOC: LL.SDS 07:55
PROVIDERS: ATTEND Surgery
DX: G56.02 Carpal tunnel syndrome, left upper limb (principal); I10 Essential (primary) hypertension; E78.5 Hyperlipidemia, unspecified; Z87.891 Personal history of nicotine dependence; Z86.73 Personal history of transient ischemic attack (TIA), and cerebral infarction without residual deficits; Z79.899 Other long term (current) drug therapy
CPT/HCPCS: 64721; J0360; J2250; J2704; J3010; J7120; 01810

== ENCOUNTER 2022-09-27 13:07 | Observation (INO) | payer MEDICARE, BC ==
[2022-09-27 14:00] LABS: ANION GAP 10.4 meq/L (7-15); CHLORIDE,CL 100 mmol/L (98-107); SODIUM,NA 140 mmol/L (136-145)
[2022-09-27 14:12] LABS: ESTIMATED GFR 36 mL/min (>=60)
[2022-09-27 14:55] LABS: CORONAVIRUS COVID-19 NAA POSITIVE (NEGATIVE); RESPIRATORY SYNCYTIAL VIR NAA NEGATIVE (NEGATIVE)
[2022-09-27] MEDS ORDERED: Ondansetron 4 MG/2 ML SDV IVPUSH PRN (15:00)
[2022-09-27] MEDS: Sodium Chloride 0.9% 10 ML Syringe FLUSH PRN (15:13)
[2022-09-27] MEDS: Sodium Chloride 0.9% 1,000 ML IV SCH (19:07)
[2022-09-27] MEDS ORDERED: Meclizine 25 MG Tab PO PRN (19:19)
[2022-09-27] MEDS ORDERED: Calcium Carbonate 500 MG Tab.Chew PO PRN (19:19)
[2022-09-27] MEDS ORDERED: METHOTREXATE 25 MG/ML IM SCH (19:30)
[2022-09-27] MEDS: Rosuvastatin 10 MG Tab PO SCH (20:16)
[2022-09-27] MEDS: DULoxetine 30 MG Cap PO SCH (20:16)
[2022-09-27] MEDS ORDERED: Acetaminophen 500 MG Tab PO PRN (23:14)
[2022-09-28] MEDS: Sodium Chloride 0.9% 1,000 ML IV SCH ×2 (07:13→19:55)
[2022-09-28] MEDS: Hydrochlorothiazide 25 MG Tab PO SCH (07:23)
[2022-09-28] MEDS: Acetaminophen 650 MG Tab.ER PO PRN ×2 (07:23→19:53)
[2022-09-28] MEDS: Folic Acid 1 MG Tab PO SCH (07:23)
[2022-09-28] MEDS: Famotidine 20 MG Tab PO SCH ×2 (07:24→18:16)
[2022-09-28] MEDS: Gabapentin 100 MG Cap PO SCH ×3 (07:24→18:16)
[2022-09-28] MEDS: Calcium Carbonate/Vitamin D3 625 MG-125 Unit Tab PO SCH (07:24)
[2022-09-28] MEDS: Losartan 25 MG Tab PO SCH (07:24)
[2022-09-28] MEDS: predniSONE 5 MG Tab PO SCH (07:24)
[2022-09-28] MEDS: Aspirin 81 MG Tab.Chew PO SCH (07:24)
[2022-09-28] MEDS: Dexamethasone 10 MG/ML SDV IVPUSH SCH (09:44)
[2022-09-28 09:52] LABS: ANION GAP 8.4 meq/L (7-15)
[2022-09-28] MEDS ORDERED: METHOTREXATE SODIUM 25 MG/ML SUBCUT SCH (15:00)
[2022-09-28] MEDS ORDERED: Gabapentin 100 MG Cap PO PRN (19:15)
[2022-09-28] MEDS: DULoxetine 30 MG Cap PO SCH (19:54)
[2022-09-28] MEDS: Rosuvastatin 10 MG Tab PO SCH (19:54)
[2022-09-28] MEDS ORDERED: Gabapentin 300 MG Cap PO SCH (20:00)
[2022-09-29] MEDS ORDERED: Gabapentin 100 MG Cap PO SCH (08:00)
[2022-09-29 08:05] LABS: ANION GAP 8.4 meq/L (7-15)
[2022-09-29] MEDS: Aspirin 81 MG Tab.Chew PO SCH (08:16)
[2022-09-29] MEDS: Dexamethasone 10 MG/ML SDV IVPUSH SCH ×2 (08:17→13:17)
[2022-09-29] MEDS: Famotidine 20 MG Tab PO SCH (08:17)
[2022-09-29] MEDS: Hydrochlorothiazide 25 MG Tab PO SCH (08:17)
[2022-09-29] MEDS: Folic Acid 1 MG Tab PO SCH (08:18)
[2022-09-29] MEDS: Losartan 25 MG Tab PO SCH (08:18)
[2022-09-29] MEDS: predniSONE 5 MG Tab PO SCH (08:18)
[2022-09-29 08:20] VITALS: BP 126/53
[2022-09-29] MEDS: Calcium Carbonate/Vitamin D3 625 MG-125 Unit Tab PO SCH (08:20)
[2022-09-29] MEDS: Sodium Chloride 0.9% 10 ML Syringe FLUSH PRN (08:22)
[2022-09-29 08:24] VITALS: PULSE 82
== END 2022-09-29 08:50 | disposition home or self-care (01) ==
LOC: LL.ED 13:07 → LL.MS 14:50
PROVIDERS: ADMIT Emergency Medicine; ATTEND Emergency Medicine
DX: R53.1 Weakness (principal); U07.1 COVID-19; I10 Essential (primary) hypertension; E78.00 Pure hypercholesterolemia, unspecified; K21.9 Gastro-esophageal reflux disease without esophagitis; F32.A Depression, unspecified; Z88.8 Allergy status to other drugs, medicaments and biological substances; Z91.048 Other nonmedicinal substance allergy status; Z88.5 Allergy status to narcotic agent; Z79.899 Other long term (current) drug therapy; Z79.82 Long term (current) use of aspirin; Z90.49 Acquired absence of other specified parts of digestive tract; Z98.890 Other specified postprocedural states; Z90.710 Acquired absence of both cervix and uterus; E07.9 Disorder of thyroid, unspecified; Z20.822 Contact with and (suspected) exposure to COVID-19
CPT/HCPCS: 0241U; 36415; 71046; 80048; 80053; 81001; 82550; 83605; 84484; 85025; 93005; 96374; 96375; 97162-GP; 97165-GO; 99285-25; A9270-GY; G0378; J1100; J2405; J3490; J7030; J7512

== ENCOUNTER 2023-12-06 10:58 | Inpatient (IN) | payer MEDICARE, BC ==
[2023-12-06] MEDS ORDERED: Polyethylene Glycol 3350 Powder 17 GM Packet PO PRN (17:35)
[2023-12-06] MEDS ORDERED: Acetaminophen/HYDROcodone 325-5 MG Tab PO PRN (17:35)
[2023-12-06] MEDS ORDERED: Levalbuterol HCl 1.25 MG/3 ML Neb NEB PRN (17:35)
[2023-12-06] MEDS: Docusate Sodium 100 MG Cap PO SCH (18:05)
[2023-12-06] MEDS ORDERED: Gabapentin 100 MG Cap PO SCH (18:35)
[2023-12-06] MEDS: Warfarin 5 MG Tab PO SCH (19:38)
[2023-12-06] MEDS ORDERED: Meclizine 25 MG Tab PO PRN (19:38)
[2023-12-06] MEDS ORDERED: Nitroglycerin 0.4 MG Tab.SL SL PRN (19:39)
[2023-12-06] MEDS ORDERED: Calcium Carbonate 500 MG Tab.Chew PO PRN (19:41)
[2023-12-06] MEDS: Warfarin 2.5 MG Tab PO ONE (20:15)
[2023-12-06] MEDS: Rosuvastatin 10 MG Tab PO SCH (20:17)
[2023-12-06] MEDS: Gabapentin 300 MG Cap PO SCH (20:18)
[2023-12-07 07:51] LABS: INR 1.9
[2023-12-07] MEDS ORDERED: Polyethylene Glycol 3350 Powder 510 GM Bot PO PRN (08:30)
[2023-12-07] MEDS: Losartan 25 MG Tab PO SCH (09:20)
[2023-12-07] MEDS: DULoxetine 30 MG Cap PO SCH (09:21)
[2023-12-07] MEDS: Folic Acid 1 MG Tab PO SCH (09:22)
[2023-12-07] MEDS: Furosemide 20 MG Tab PO SCH (09:23)
[2023-12-07] MEDS: Gabapentin 100 MG Cap PO SCH (09:26)
[2023-12-07] MEDS: Famotidine 10 MG Tab PO SCH (09:27)
[2023-12-07] MEDS: Hydroxychloroquine 200 MG Tab PO SCH (09:27)
[2023-12-07] MEDS: predniSONE 5 MG Tab PO SCH (09:28)
[2023-12-07] MEDS: Metoprolol Succinate 25 MG Tab.ER PO SCH (09:28)
[2023-12-07] MEDS: Cyanocobalamin (Vitamin B12) 1,000 MCG Tab PO SCH (09:31)
[2023-12-07] MEDS: Acetaminophen 325 MG Tab PO PRN (09:55)
[2023-12-07] MEDS: Enoxaparin 80 MG/0.8 ML Syringe SUBCUT ONE (10:56)
[2023-12-07] MEDS: Famotidine 20 MG Tab PO SCH (12:35)
[2023-12-07] MEDS: Cyanocobalamin (Vitamin B12) 250 MCG Tab PO SCH (12:36)
[2023-12-07] MEDS: Warfarin 2.5 MG Tab PO ONE (18:03)
[2023-12-08] MEDS: Gabapentin 100 MG Cap PO SCH ×2 (07:22→08:09)
[2023-12-08] MEDS: Gabapentin 300 MG Cap ONE (07:23)
[2023-12-08 07:29] LABS: BASOPHILS ABSOLUTE AUTO 0.05 K/uL (0.00-0.20); BASOPHILS PERCENT AUTO 0.4 % (0.0-2.0); EOSINOPHILS ABSOLUTE AUTO 0.35 K/uL (0.00-0.50); EOSINOPHILS PERCENT AUTO 2.7 % (0.0-5.0); HEMATOCRIT 28.8 % (34.0-46.0); HEMOGLOBIN 8.8 g/dL (11.7-15.5); LYMPHOCYTES ABSOLUTE AUTO 3.53 K/uL (0.50-3.50); LYMPHOCYTES PERCENT AUTO 26.8 % (10.0-50.0); MEAN CORPUSCULAR HEMOGLOBIN 30.2 pg (28.2-33.3); MEAN CORPUSCULAR HGB CONC 30.6 g/dL (31.7-36.0); MONOCYTES ABSOLUTE AUTO 1.05 K/uL (0.00-1.00); NEUTROPHILS ABSOLUTE AUTO 8.18 K/uL (1.40-7.00); NEUTROPHILS PERCENT AUTO 62.1 % (45.0-80.0); PLATELET COUNT,PLT 335 K/uL (150-350); RED BLOOD CELL COUNT 2.91 M/uL (3.77-5.09); RED CELL DISTRIBUTION WIDTH 14.1 % (11.2-14.1); WHITE BLOOD CELL COUNT,WBC 13.2 K/uL (4.0-10.2)
[2023-12-08 07:46] LABS: CALCIUM 8.5 mg/dL (8.5-10.1); CARBON DIOXIDE,CO2 32.8 mmol/L (21.0-32.0); CREATININE 1.54 mg/dL (0.51-1.17); EST CRCL DRUG DOSING (CG) 27.09 mL/min; POTASSIUM,K 4.6 mmol/L (3.5-5.1)
[2023-12-08 07:48] LABS: ANION GAP 7.8 meq/L (7-15)
[2023-12-08 08:54] LABS: INR 1.7 (0.9-1.1); PROTHROMBIN TIME 16.5 SEC (9.0-11.1)
[2023-12-08] MEDS: Warfarin 5 MG Tab PO ONE (17:11)
[2023-12-09] MEDS: RISEDRONATE SODIUM 35 MG PO SCH (06:19)
[2023-12-09 08:56] LABS: BASOPHILS ABSOLUTE AUTO 0.05 K/uL (0.00-0.20); BASOPHILS PERCENT AUTO 0.4 % (0.0-2.0); EOSINOPHILS ABSOLUTE AUTO 0.37 K/uL (0.00-0.50); EOSINOPHILS PERCENT AUTO 3.1 % (0.0-5.0); HEMATOCRIT 31.6 % (34.0-46.0); HEMOGLOBIN 9.6 g/dL (11.7-15.5); LYMPHOCYTES ABSOLUTE AUTO 2.63 K/uL (0.50-3.50); LYMPHOCYTES PERCENT AUTO 22.3 % (10.0-50.0); MEAN CORPUSCULAR HEMOGLOBIN 30.2 pg (28.2-33.3); MEAN CORPUSCULAR HGB CONC 30.4 g/dL (31.7-36.0); MEAN CORPUSCULAR VOLUME 99.4 fL (84.0-98.0); MONOCYTES ABSOLUTE AUTO 0.86 K/uL (0.00-1.00); MONOCYTES PERCENT AUTO 7.3 % (2.0-14.0); NEUTROPHILS PERCENT AUTO 66.9 % (45.0-80.0); PLATELET COUNT,PLT 326 K/uL (150-350); RED BLOOD CELL COUNT 3.18 M/uL (3.77-5.09); RED CELL DISTRIBUTION WIDTH 14.2 % (11.2-14.1); WHITE BLOOD CELL COUNT,WBC 11.8 K/uL (4.0-10.2)
[2023-12-09 09:16] LABS: INR 1.6 (0.9-1.1)
[2023-12-09] MEDS: Menthol 10%/Methyl Salicylate 15% 85 GM Tube TOP PRN (09:39)
[2023-12-09] MEDS: Warfarin 5 MG Tab PO ONE (17:21)
[2023-12-10] MEDS: Warfarin 5 MG Tab PO ONE (17:26)
[2023-12-10] MEDS ORDERED: Warfarin 5 MG Tab PO ONE (18:00)
[2023-12-11] MEDS: Warfarin 2.5 MG Tab PO SCH (17:21)
[2023-12-13 07:38] LABS: INR 2.6
[2023-12-13] MEDS: Warfarin 2.5 MG Tab PO SCH (17:06)
[2023-12-14 07:39] LABS: BASOPHILS ABSOLUTE AUTO 0.07 K/uL (0.00-0.20); BASOPHILS PERCENT AUTO 0.6 % (0.0-2.0); EOSINOPHILS ABSOLUTE AUTO 0.27 K/uL (0.00-0.50); EOSINOPHILS PERCENT AUTO 2.4 % (0.0-5.0); HEMATOCRIT 31.7 % (34.0-46.0); HEMOGLOBIN 9.5 g/dL (11.7-15.5); LYMPHOCYTES ABSOLUTE AUTO 5.42 K/uL (0.50-3.50); LYMPHOCYTES PERCENT AUTO 47.3 % (10.0-50.0); MEAN CORPUSCULAR HEMOGLOBIN 30.4 pg (28.2-33.3); MEAN CORPUSCULAR VOLUME 101.6 fL (84.0-98.0); MONOCYTES ABSOLUTE AUTO 1.02 K/uL (0.00-1.00); MONOCYTES PERCENT AUTO 8.9 % (2.0-14.0); NEUTROPHILS ABSOLUTE AUTO 4.69 K/uL (1.40-7.00); NEUTROPHILS PERCENT AUTO 40.8 % (45.0-80.0); PLATELET COUNT,PLT 288 K/uL (150-350); RED BLOOD CELL COUNT 3.12 M/uL (3.77-5.09); RED CELL DISTRIBUTION WIDTH 14.8 % (11.2-14.1); WHITE BLOOD CELL COUNT,WBC 11.5 K/uL (4.0-10.2)
[2023-12-14 07:59] VITALS: BP 107/48; PULSE 92
== END 2023-12-14 09:55 | disposition home health service (06) | DRG 559 ==
LOC: LL.SWG 14:51
PROVIDERS: ADMIT Emergency Medicine; ATTEND Family Medicine
DX: Z47.1 Aftercare following joint replacement surgery (principal); J18.9 Pneumonia, unspecified organism; Z96.652 Presence of left artificial knee joint; I48.91 Unspecified atrial fibrillation; I25.10 Atherosclerotic heart disease of native coronary artery without angina pectoris; E78.00 Pure hypercholesterolemia, unspecified; K21.9 Gastro-esophageal reflux disease without esophagitis; G62.9 Polyneuropathy, unspecified; F32.A Depression, unspecified; E03.9 Hypothyroidism, unspecified; M06.9 Rheumatoid arthritis, unspecified; I12.9 Hypertensive chronic kidney disease with stage 1 through stage 4 chronic kidney disease, or unspecified chronic kidney disease; N18.30 Chronic kidney disease, stage 3 unspecified; Z88.1 Allergy status to other antibiotic agents; Z91.048 Other nonmedicinal substance allergy status; Z88.5 Allergy status to narcotic agent; Z88.8 Allergy status to other drugs, medicaments and biological substances; Z79.899 Other long term (current) drug therapy; Z79.01 Long term (current) use of anticoagulants; Z79.51 Long term (current) use of inhaled steroids; Z95.5 Presence of coronary angioplasty implant and graft; Z90.710 Acquired absence of both cervix and uterus; Z98.890 Other specified postprocedural states; Z90.49 Acquired absence of other specified parts of digestive tract
CPT/HCPCS: 36415; 36416; 80048; 82272; 85025; 85610; 97110-GP; 97162-GP; 97165-GO; 97530-GO; 97530-GP; 97535-GO; 99306; A9270-GY; J1650; J7512

== ENCOUNTER 2024-02-17 21:49 | Emergency (ER) | payer MEDICARE, BC ==
[2024-02-17] MEDS ORDERED: Naloxone 0.4 MG/ML SDV IVPUSH PRN (22:13)
[2024-02-17] MEDS: fentaNYL 50 MCG/ML SDV IVPUSH ONE (22:16)
[2024-02-17] MEDS: Sodium Chloride 0.9% 10 ML Syringe FLUSH PRN (22:19)
[2024-02-17] MEDS: Prochlorperazine 10 MG/2 ML SDV IVPUSH ONE (22:37)
[2024-02-17 22:46] LABS: APPEARANCE,URINE SLIGHTLY CLOUDY (CLEAR); BILIRUBIN,URINE NEGATIVE (NEGATIVE); COLOR,URINE YELLOW (YELLOW); GLUCOSE,URINE NEGATIVE (NEGATIVE); KETONES,URINE TRACE mg/dL (NEGATIVE); PH,URINE 5.5 (5.0-9.0); PROTEIN,URINE 100 mg/dL (NEGATIVE)
[2024-02-17 22:47] LABS: LEUKOCYTE ESTERASE,URINE TRACE (NEGATIVE); NITRITE,URINE NEGATIVE (NEGATIVE); OCCULT BLOOD,URINE LARGE (NEGATIVE); UROBILINOGEN,URINE 0.2 E.U./dL (0.2-1.0)
[2024-02-17 22:51] LABS: BASOPHILS ABSOLUTE AUTO 0.02 K/uL (0.00-0.20); BASOPHILS PERCENT AUTO 0.1 % (0.0-2.0); EOSINOPHILS ABSOLUTE AUTO 0.08 K/uL (0.00-0.50); EOSINOPHILS PERCENT AUTO 0.5 % (0.0-5.0); HEMATOCRIT 38.8 % (34.0-46.0); HEMOGLOBIN 12.3 g/dL (11.7-15.5); LYMPHOCYTES PERCENT AUTO 42.8 % (10.0-50.0); MEAN CORPUSCULAR HEMOGLOBIN 31.1 pg (28.2-33.3); MEAN CORPUSCULAR HGB CONC 31.7 g/dL (31.7-36.0); MEAN CORPUSCULAR VOLUME 98.2 fL (84.0-98.0); NEUTROPHILS ABSOLUTE AUTO 7.27 K/uL (1.40-7.00); NEUTROPHILS PERCENT AUTO 48.6 % (45.0-80.0); PLATELET COUNT,PLT 210 K/uL (150-350); RED BLOOD CELL COUNT 3.95 M/uL (3.77-5.09); RED CELL DISTRIBUTION WIDTH 13.9 % (11.2-14.1)
[2024-02-17] MEDS: Ketorolac 30 MG/ML SDV IVPUSH ONE (23:06)
[2024-02-17 23:45] VITALS: BP 118/50; PULSE 65
[2024-02-17 23:49] LABS: ALANINE AMINOTRANSFERASE,ALT 19 U/L (12-78); ALBUMIN 3.7 g/dL (3.4-5.0); ALKALINE PHOSPHATASE 97 IU/L (46-116); ANION GAP 11.9 meq/L (7-15); ASPARTATE AMNIOTRANSFERASE,AST 18 U/L (15-37); BILIRUBIN TOTAL 0.4 mg/dL (0.2-1.0); BLOOD UREA NITROGEN,BUN 26 mg/dL (7-18); CARBON DIOXIDE,CO2 27.1 mmol/L (21.0-32.0); CHLORIDE,CL 103 mmol/L (98-107); GLUCOSE RANDOM 141 mg/dL (70-99); PROTEIN TOTAL,TP 7.3 g/dL (6.4-8.2); SODIUM,NA 142 mmol/L (136-145)
[2024-02-17 23:51] LABS: ESTIMATED GFR 20 mL/min (>=60)
== END 2024-02-18 00:10 ==
LOC: LL.ED 21:49
DX: N13.2 Hydronephrosis with renal and ureteral calculous obstruction (principal); D72.829 Elevated white blood cell count, unspecified; N39.0 Urinary tract infection, site not specified; R31.9 Hematuria, unspecified; I10 Essential (primary) hypertension; I25.10 Atherosclerotic heart disease of native coronary artery without angina pectoris; I48.91 Unspecified atrial fibrillation; K21.9 Gastro-esophageal reflux disease without esophagitis; Z95.5 Presence of coronary angioplasty implant and graft; Z91.048 Other nonmedicinal substance allergy status; Z88.5 Allergy status to narcotic agent; Z88.8 Allergy status to other drugs, medicaments and biological substances; Z79.899 Other long term (current) drug therapy; Z79.01 Long term (current) use of anticoagulants; Z90.710 Acquired absence of both cervix and uterus; Z86.73 Personal history of transient ischemic attack (TIA), and cerebral infarction without residual deficits
CPT/HCPCS: 36415; 74176; 80053; 81003; 85025; 87086; 87088; 87186; 96374; 96375; 99285-25; J0780; J1885; J3010; J3490

== ENCOUNTER 2024-03-08 15:14 | Emergency (ER) | payer MEDICARE, BC ==
[2024-03-08] MEDS ORDERED: Sodium Chloride 0.9% 10 ML Syringe FLUSH PRN ×2 (15:36→15:53)
[2024-03-08] MEDS ORDERED: Lactated Ringers 1,000 ML IV SCH (15:45)
[2024-03-08] MEDS: Lactated Ringers 1,000 ML IV ONE ×2 (15:53→17:23)
[2024-03-08] MEDS: Acetaminophen 500 MG Tab PO ONE (15:53)
[2024-03-08] MEDS: Meropenem 1 GM in Sodium Chloride 0.9% 100 ML IV ONE (16:04)
[2024-03-08] MEDS: Acetaminophen 500 MG Tab ONE (16:09)
[2024-03-08 16:11] LABS: BASOPHILS ABSOLUTE AUTO 0.03 K/uL (0.00-0.20); BASOPHILS PERCENT AUTO 0.2 % (0.0-2.0); EOSINOPHILS ABSOLUTE AUTO 0.01 K/uL (0.00-0.50); EOSINOPHILS PERCENT AUTO 0.1 % (0.0-5.0); HEMATOCRIT 32.3 % (34.0-46.0); HEMOGLOBIN 9.9 g/dL (11.7-15.5); LYMPHOCYTES ABSOLUTE AUTO 2.68 K/uL (0.50-3.50); LYMPHOCYTES PERCENT AUTO 14.7 % (10.0-50.0); MEAN CORPUSCULAR HGB CONC 30.7 g/dL (31.7-36.0); MEAN CORPUSCULAR VOLUME 101.3 fL (84.0-98.0); MONOCYTES ABSOLUTE AUTO 1.86 K/uL (0.00-1.00); MONOCYTES PERCENT AUTO 10.2 % (2.0-14.0); NEUTROPHILS ABSOLUTE AUTO 13.59 K/uL (1.40-7.00); NEUTROPHILS PERCENT AUTO 74.8 % (45.0-80.0); PLATELET COUNT,PLT 148 K/uL (150-350); RED BLOOD CELL COUNT 3.19 M/uL (3.77-5.09); RED CELL DISTRIBUTION WIDTH 13.9 % (11.2-14.1); WHITE BLOOD CELL COUNT,WBC 18.2 K/uL (4.0-10.2)
[2024-03-08 16:19] LABS: PROTHROMBIN TIME 10.4 SEC (9.0-11.1); PTT,PARTIAL THROMBOPLSTIN TIME 25.9 SEC (23.6-29.8)
[2024-03-08 16:21] LABS: LACTIC ACID 1.5 mmol/L (0.4-2.0)
[2024-03-08 16:22] LABS: ALBUMIN 2.7 g/dL (3.4-5.0); ANION GAP 9.5 meq/L (7-15); BILIRUBIN TOTAL 0.6 mg/dL (0.2-1.0); CALCIUM 8.4 mg/dL (8.5-10.1); CARBON DIOXIDE,CO2 24.5 mmol/L (21.0-32.0); CREATININE 1.73 mg/dL (0.51-1.17); EST CRCL DRUG DOSING (CG) 26.06 mL/min; PROTEIN TOTAL,TP 6.2 g/dL (6.4-8.2)
[2024-03-08 16:32] LABS: APPEARANCE,URINE SLIGHTLY CLOUDY; BILIRUBIN,URINE NEGATIVE (NEGATIVE); COLOR,URINE LIGHT YELLOW; GLUCOSE,URINE NEGATIVE (NEGATIVE); KETONES,URINE NEGATIVE (NEGATIVE); LEUKOCYTE ESTERASE,URINE SMALL (NEGATIVE); NITRITE,URINE NEGATIVE (NEGATIVE); OCCULT BLOOD,URINE LARGE (NEGATIVE); PH,URINE 5.5 (5.0-9.0); PROTEIN,URINE 100 mg/dL (NEGATIVE); UROBILINOGEN,URINE 0.2 E.U./dL (0.2-1.0)
[2024-03-08 16:36] LABS: BACTERIA,URINE FEW /HPF (NONE TO FEW); EPITHELIAL CELLS,URINE RARE /LPF; RBC,URINE 50-75 /HPF; WBC,URINE 20-30 /HPF
[2024-03-08 21:20] VITALS: BP 114/58; PULSE 87
== END 2024-03-08 18:30 ==
LOC: LL.ED 15:14
DX: A41.9 Sepsis, unspecified organism (principal); R65.21 Severe sepsis with septic shock; I48.91 Unspecified atrial fibrillation; I25.10 Atherosclerotic heart disease of native coronary artery without angina pectoris; I10 Essential (primary) hypertension; E78.00 Pure hypercholesterolemia, unspecified; E03.9 Hypothyroidism, unspecified; Z86.73 Personal history of transient ischemic attack (TIA), and cerebral infarction without residual deficits; K21.9 Gastro-esophageal reflux disease without esophagitis; Z79.899 Other long term (current) drug therapy; Z79.01 Long term (current) use of anticoagulants; Z91.048 Other nonmedicinal substance allergy status; Z88.1 Allergy status to other antibiotic agents; Z88.5 Allergy status to narcotic agent; Z88.8 Allergy status to other drugs, medicaments and biological substances
CPT/HCPCS: 36415; 51702; 71045; 71250; 74176; 80053; 81001; 83605; 84484; 85025; 85610; 85730; 87040; 87086; 94761; 96361; 96365; 99285; A9270; J2185; J3490; J7120